=== PATIENT | male | born 1950 | race Caucasian/White ===

== ENCOUNTER → 2018-11-20 | Outpatient (CLI) | payer BC, MEDICARE ==
--- NOTE | 2018-11-21 09:56 | RADIOLOGY REPORT (SQ) ---
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 TECHNIQUE: Blood glucose level was verified. Above dose of FDG was injected intravenously. 2-D seg mented attenuation correction images were obtained from the base of the skull to the midthighs. Nonc ontrast CT images were obtained for attenuation correction and fusion with emission images. CT image s were performed without oral or intravenous contrast and are not sensitive for parenchymal lesions. A series of overlapping emission PET images were obtained. Images reviewed and manipulated at [facility] [employer] work station by the radiologist. Images stored on PACS. LIMITATIONS: None. FINDINGS: HEAD AND NECK: Tumor is present in the left tonsillar fossa extending into the left latera l lung base, lateral wall hypopharynx and left with the left axilla. Overall tumor measures about 3. 8 cm craniocaudad by 2.5 cm AP x 4 cm craniocaudad with SUV of 13.3. A left posterior triangle lymph node is present 2 x 1 cm in size on axial image 30, with SUV of 8.2. CHEST: No areas of abnormal metabolic activity in the chest. ABDOMEN AND PELVIS: No areas of abnormal metabolic activity in the abdomen or pelvis. Expected physi ologic activity is present in the genitourinary system and bowel. PROXIMAL LOWER EXTREMITIES: No areas of abnormal metabolic activity in the soft tissues of the lower extremities. BONES: No abnormal metabolic activity in the visualized skeleton. ADDITIONAL CT FINDINGS: No additional significant findings on the noncontrast CT images. OTHER: Liver background activity 2.0 SUV. Blood pool background activity 1.7 SUV IMPRESSION: Malignant left tonsillar fossa/ hypopharyngeal mass with single enlarged metastatic lymp h node in the left posterior triangle TECHNICAL DOCUMENTATION: JOB ID: [id number]- All Rights Reserved Reading location - IP/workstation name: [email or web address]
== END ==
LOC: RAD 15:17
PROVIDERS: ATTEND Internal Medicine
DX: C01 Malignant neoplasm of base of tongue (principal)
CPT/HCPCS: 78815; A9552

== ENCOUNTER 2018-12-21 06:38 | Day surgery (SDC) | payer BC, MEDICARE ==
[~2018-12-21 06:38] MED LIST: ACETAMINOPHEN 325 MG TABLET PO PRN; CEFAZOLIN 1 GM/D5W RTU 1 GM/50 ML RTUPB IV ONE; CEFAZOLIN 1 GM/D5W RTU 1 GM/50 ML RTUPB IV PRN
[2018-12-21] MEDS ORDERED: LIDOCAINE 1%/EPINEPHRINE INJ 20 ML VIAL ONE (06:39)
[2018-12-21] MEDS ORDERED: MIDAZOLAM 2 MG/2 ML INJ ONE (08:05)
[2018-12-21] MEDS ORDERED: FENTANYL CITRATE INJ/PF 100 MCG/2 ML AMPUL ONE (08:05)
[2018-12-21] MEDS ORDERED: HYDROMORPHONE HCL INJ/PF 2 MG/ML AMPULE ONE (08:05)
[2018-12-21 08:06] LABS: ABSOLUTE EOSINOPHILS # (AUTO) 0.2 10^3/uL (0.0-0.6); ABSOLUTE MONOCYTES (AUTO) 0.7 10^3/uL (0.1-1.4); BASOPHILS % (AUTO) 0.5 % (0-2); EOSINOPHILS % (AUTO) 2.9 % (0-6); HEMATOCRIT 39.4 % (37.9-51.0); HEMOGLOBIN 13.9 g/dL (13.5-17.0); MEAN CORPUSCULAR HEMOGLOBIN 33.3 pg (27.0-33.4); MEAN CORPUSCULAR HGB CONC 35.2 g/dL (32.0-36.0); MEAN CORPUSCULAR VOLUME 95 fl (80-97); MONOCYTES % (AUTO) 11.6 % (3-13); PLATELET COUNT 239 10^3/uL (150-450); RED BLOOD COUNT 4.17 10^6/uL (4.35-5.55); RED CELL DISTRIBUTION WIDTH 13.6 % (11.5-14.0); TOTAL CELLS COUNTED % (AUTO) 100 %; WHITE BLOOD COUNT 5.8 10^3/uL (4.0-10.5)
[2018-12-21] MEDS ORDERED: PROPOFOL INJ 200 MG/20 ML VIAL IV ONE (08:06)
[2018-12-21] MEDS ORDERED: ACETAMINOPHEN 1,000 MG/100 ML RTUPB IV ONE (08:06)
[2018-12-21] MEDS ORDERED: DIPHENHYDRAMINE HCL 50 MG/ML VIAL IV PRN (08:46)
[2018-12-21] MEDS ORDERED: PROMETHAZINE HCL INJ 25 MG/1 ML VIAL IV PRN (08:46)
[2018-12-21] MEDS ORDERED: MORPHINE SULFATE 10 MG/ML INJ IV PRN (08:46)
[2018-12-21] MEDS ORDERED: MEPERIDINE HCL/PF INJ 25 MG/1 ML DISP.SYRIN IV PRN (08:46)
[2018-12-21] MEDS ORDERED: FENTANYL CITRATE INJ/PF 100 MCG/2 ML AMPUL IV PRN ×3 (08:46)
[2018-12-21] MEDS ORDERED: ONDANSETRON HCL INJ/PF 4 MG/2 ML SDV IV PRN (08:46)
--- NOTE | 2018-12-21 09:27 | Discharge Summary ---
Discharge Summary (SDC) - Discharge Final Diagnosis: Base of tongue carcinoma Date of Surgery: 12/21/18 Discharge Date: 12/21/18 Condition: Good Treatment or Instructions: May use PEG; may use port; follow-up with [facility] in 1-2 weeks; permit Steri-Strips to fall off; may take Tylenol or Motrin as needed pain Discharge Diet: As Tolerated Discharge Activity: Activity As Tolerated Home Care Assistance: None Needed Report the Following to Your Physician Immediately: Shortness of Breath, Increase in Pain, Fever over 101 Degrees
--- NOTE | 2018-12-21 09:36 | Operative Report ---
Operative Report DATE OF SURGERY: 12/21/18 PREOPERATIVE DIAGNOSIS: Base of tongue carcinoma POSTOPERATIVE DIAGNOSIS: Same OPERATION: 1. Focused ultrasound left neck. 2. Ultrasound directed insertion of single-lumen Kdxugy-g-Zgox catheter into left internal jugular vein with port tucked into left subclavian position. 3. Esophagogastroduodenoscopy. 4. Placement of percutaneous endoscopic gastrostomy tube, pullout style, Endo-ie, 20 [place] SURGEON: ROBERT MELENDEZ ANESTHESIA: LMAC TISSUE REMOVED OR ALTERED: None COMPLICATIONS: None ESTIMATED BLOOD LOSS: Scant INTRAOPERATIVE FINDINGS: See below PROCEDURE: The patient was taken the preop holding area to the main operating room where LMAC anesthesia was induced. Arms were tucked, neck and head externally rotated to the right side, and left neck and chest wall prepped and draped in sterile fashion. Surgical plan and surgical timeout conducted. Focused ultrasound of the left neck revealed a patent, compressible left internal jugular vein. The skin was anesthetized with 1% plain lidocaine. Using micro needle and wire, the left internal jugular vein was cannulated. A suitable site for placement of port was chosen in the left subclavian position. The skin was anesthetized with 1% plain Xylocaine. A 3 cm incision made the skin. A subcutaneous pocket was developed large enough to accommodate a single-chamber port in the deep subcutaneous tissue. The catheter was then trimmed to the appropriate length, tunneled between the 2 incisions, attached to the port with the plastic locking ring. The port was tucked into the pocket, then the micro-wire was switched over to a conventional guidewire, 0.030 inches, and the dilator introducer sheath threaded over the guidewire. The wire and dilator removed, catheter free and threaded into the sheath, sheath removed leaving the catheter in good position. Under fluoroscopic guidance, there was no kinking of the catheter, with the tip in the superior vena cava, and no evidence of ectopy. Hemostasis was excellent. Wounds closed with 3-0 Vicryl benzoin Steri-Strips. We now took down the drapes, equipment, and brought in the endoscopic equipment. The flexible adult upper endoscope was advanced to the oropharynx, down the esophagus through the stomach into the duodenum. There was no gross pathology noted other than the base of tongue tumor seen on the patient's right posterior pharynx. The scope was withdrawn back into the stomach, stomach insufflated with air, and a suitable site for placement of the PEG was chosen. The left upper quadrant abdominal wall was prepped with alcohol Betadine and the suggest 1% plain lidocaine, surjit made the skin with 11 blade, and Jelco introducer needle threaded into the wall, and into the lumen of the stomach. The guidewire was threaded through the Jelco, and then snared with the upper endoscope. The scope, snare, and wire were brought out through the patient's oropharynx, then a 20 Belgian Endo I pullout type PEG tube was threaded over the guidewire. The guidewire and PEG were brought out through the intra-abdominal wall, allowing the bolster, up against the stomach wall. Appropriate patient devices and adapter was applied to the PEG tube. Bleeding was nil. Repeat upper endoscopy performed uneventfully demonstrated the PEG tube to be in good position. Appropriate dressings applied. Patient was taken to the recovery room in stable condition.
[2018-12-21 11:25] VITALS: BP 129/75
--- NOTE | 2018-12-21 13:12 | RADIOLOGY REPORT (SQ) ---
EXAM DESCRIPTION: FLUORO/CV PLACEMENT COMPLETED DATE/TIME: 12/21/2018 10:41 am REASON FOR STUDY: PORTACATH PLCMT LEFT SIDE ASST WITH FLUORO IN OR C01 MALIGNANT NEOPLASM OF BASE O F TONGUE COMPARISON: None. FLUOROSCOPY TIME: 0.1 minute 2 images saved to PACS. TECHNIQUE: Intra-operative images acquired during surgical procedure to evaluate progress. NUMBER OF IMAGES: 2 LIMITATIONS: None. FINDINGS: Images from left-sided port placement. Catheter tip overlies SVC. IMPRESSION: IMAGE(S) OBTAINED DURING PROCEDURE. COMMENT: Quality ID [id number]: Final reports for procedures using fluoroscopy that document radiation exp osure indices, or exposure time and number of fluorographic images (if radiation exposure indices are not available) Please consult full operative report of the attending physician for description of the procedure. TECHNICAL DOCUMENTATION: JOB ID: [id number] [employer]- All Rights Reserved Reading location - IP/workstation name: [email or web address]
== END 2018-12-21 10:50 | disposition home or self-care (01) ==
LOC: OROUT 06:38
PROVIDERS: ATTEND Surgery
DX: C01 Malignant neoplasm of base of tongue (principal); R13.10 Dysphagia, unspecified; Z87.891 Personal history of nicotine dependence; A63.0 Anogenital (venereal) warts
CPT/HCPCS: 36561; 43246; 36415; 85025; 77001; C1752; C1788; J2250; J0690; J3010; J3490; J2704; J1642; J0131; 731; J1170

== ENCOUNTER → 2019-06-04 | Outpatient (CLI) | payer MEDICARE, BC ==
--- NOTE | 2019-06-06 09:58 | RADIOLOGY REPORT (SQ) ---
EXAM DESCRIPTION: PET CT SKULL/THIGH COMPLETED DATE/TIME: 06/04/2019 9:02 pm REASON FOR STUDY: (C01)MALIGNANT NEOPLASM OF BASE OF TONGUE C01 MALIGNANT NEOPLASM OF BASE OF TONGU E COMPARISON: CT soft tissue neck 04/12/2019 PET-CT 11/20/2018 RADIONUCLIDE AND DOSE: 12.3 mCi F18 FDG The route of agent administration: Intravenous FASTING BLOOD SUGAR: 97 mg/dl CONTRAST TYPE AND DOSE: No CT contrast given. TECHNIQUE: Blood glucose level was verified. Above dose of FDG was injected intravenously. 2-D seg mented attenuation correction images were obtained from the base of the skull to the midthighs. Nonc ontrast CT images were obtained for attenuation correction and fusion with emission images. CT image s were performed without oral or intravenous contrast and are not sensitive for parenchymal lesions. A series of overlapping emission PET images were obtained. Images reviewed and manipulated at [facility] work station by the radiologist. Images stored on PACS. LIMITATIONS: None. FINDINGS: HEAD AND NECK: A punctate focus of increased activity persists in the left piriform recess with SUV of 3.9. No measurable soft tissue nodule is seen on the accompanying CT images. The small lymph nodes described on [facility] CT soft tissue neck 04/12/2019 left neck level 2 ambika on are non metabolic and not discernible on today's CT images. CHEST: In the posterior aspect right upper lobe, a bandlike infiltrate is present on axial images 90- 95. There is a tiny calcification in the segmental pulmonary artery to this area. This could repres ent an old pulmonary infarct or old focus of pneumonia, with SUV of 1.3. No hilar or mediastinal lena nopathy. No other lung hilar, mediastinal, or pleural findings. ABDOMEN AND PELVIS: No areas of abnormal metabolic activity in the abdomen or pelvis. Expected physi ologic activity is present in the genitourinary system and bowel. PROXIMAL LOWER EXTREMITIES: No areas of abnormal metabolic activity in the soft tissues of the lower extremities. BONES: No abnormal metabolic activity in the visualized skeleton. ADDITIONAL CT FINDINGS: Left-sided permanent central line tip superior vena cava. Gastrostomy tube t ip in the stomach. Colonic diverticulosis. OTHER: Liver background activity 2.0 SUV. Blood pool background activity 1.5 SUV IMPRESSION: Punctate persistent focus of activity in the left piriform recess without discernible no dule by CT. Low level activity in right upper lobe consolidation, possibly resolving pneumonia or small pulmonary infarct. TECHNICAL DOCUMENTATION: JOB ID: [id number] [employer]- All Rights Reserved Reading location - IP/workstation name: [email or web address]
== END ==
LOC: RAD 14:41
PROVIDERS: ATTEND Physician Assistant Medical
DX: C01 Malignant neoplasm of base of tongue (principal)
CPT/HCPCS: 78815; A9552